=== PATIENT | male | born 1965 | race Caucasian/White ===

== ENCOUNTER 2016-12-08 20:42 | Emergency (ER) | payer OTHER ==
[2016-12-08 22:23] LABS: HEMOGLOBIN 13.4 gm/dl (14.0-17.5); RED BLOOD COUNT 4.81 M/UL (4.20-5.50); WHITE BLOOD COUNT 8.1 K/UL (4.5-11.0)
[2016-12-08 22:47] LABS: BUN/CREATININE RATIO 21 (0-10)
== END 2016-12-09 17:45 | disposition home or self-care (01) ==
LOC: ER1 20:42 → ZEROF 23:23 → ER1 23:23 → ZEROF 12-09 17:00
PROVIDERS: Student in an Organized Health Care Education/Training Program
DX: R07.89 Other chest pain (principal); I10 Essential (primary) hypertension; K21.9 Gastro-esophageal reflux disease without esophagitis; E66.01 Morbid (severe) obesity due to excess calories; G25.81 Restless legs syndrome; G62.9 Polyneuropathy, unspecified; Z79.899 Other long term (current) drug therapy
CPT/HCPCS: 36415; 71010; 80053; 80061; 82550; 82553; 83036; 83874; 83880; 84443; 84484; 85025; 85379; 93005; 96372; 99285; G0378